=== PATIENT | female | born 1970 | race Caucasian/White ===

== ENCOUNTER 2019-03-04 20:40 | Emergency (ER) | payer OTHER ==
[~2019-03-04] VITALS: Ht 154.9 cm; Wt 49.9 kg
[2019-03-04 20:40] VITALS: BP 126/69
--- NOTE | 2019-03-04 20:40 | NUR ---
Dr. Conti evaluating patient at bedside.
--- NOTE | 2019-03-04 20:40 | NUR ---
PT EMERSON ALS. TAKEN TO BED 8
--- NOTE | 2019-03-04 20:41 | NUR ---
PT TAKEN TO CT Addendum: 03/04/19 at 2112 by [facility] PT TAKEN TO STAT CT. CODE BRAIN. RN ACCOMPANIED.
[2019-03-04] MEDS ORDERED: ONDANSETRON 4 MG/2 ML VIAL IVP ONE ×2 (20:45→21:55)
[2019-03-04] MEDS ORDERED: NACL 0.9% 1,000 ML IV ONE ×2 (20:45→21:55)
--- NOTE | 2019-03-04 20:45 | NUR ---
48 YO F EMERSON FROM [place] D/T ALOC, N/V. PER EMS, PT WAS SHOPPING AT [employer] WHEN SHE SUDDENLY FELT ILL WITH N/V AND A SEED ANALYST CALLED 911. PT ARRIVES TO ED ALOC, DIFFICULT TO AROUSE, AND LEFT SIDED WEAKNESS. EMS REPORTS PT WAS ABLE TO TELL THEM SHE HAS HX OF SEIZURES AND A STROKE WHEN SHE WAS 1.5 YEARS OLD. -- PT GSC 13. PT AWAKE, EYES OPEN. RESPONDS TO NAME. KNOWS . CANNOT PROVIDE HX OR EVENTS LEADING UP TO PRESENT. DIFFICULTY ANSWERING QUESTIONS. DRY HEAVING AT THIS TIME. CANNOT HOLD UP HEAD. WEAKNESS TO LEFT SIDE NOTED. DECORTICATE POSTURING NOTED TO LEFT ARM. -- SKIN PINK, MOIST, COOL. PT DIAPHORETIC. BREATHING EVEN, UNLABORED. PMH-- SEIZURES (LAST UNKNOWN), POSSIBLE CVA RX-- UNKNOWN Addendum: 03/04/19 at 2304 by [facility] SPEECH IS SLURRED, DIFFICULT TO UNDERSTAND.
--- NOTE | 2019-03-04 21:11 | NUR ---
EMT AT BEDSIDE PERFORMING EKG.
[2019-03-04 21:15] LABS: BASOPHILS % (AUTO) 0.4 % (0.0-2.0); EOSINOPHILS # (AUTO) 0.1 K/uL (0-0.4); EOSINOPHILS % (AUTO) 0.9 % (0.0-4.0); HEMATOCRIT 40.1 % (36-48); HEMOGLOBIN 13.6 g/dL (12.0-16.0); LYMPHOCYTES # (AUTO) 1.6 K/uL (2.5-16.5); LYMPHOCYTES % (AUTO) 22.1 % (20.5-51.1); MEAN CORPUSCULAR HEMOGLOBIN 31 pg (27-31); MEAN CORPUSCULAR HGB CONC 34 g/dL (33-37); MEAN CORPUSCULAR VOLUME 90.5 fL (80-94); MONOCYTES # (AUTO) 0.3 K/uL (0.8-1.0); MONOCYTES % (AUTO) 3.7 % (1.7-9.3); NEUTROPHILS # (AUTO) 5.3 K/uL (1.8-7.7); NEUTROPHILS % (AUTO) 72.9 % (42.2-75.2); PLATELET COUNT (AUTO) 268 K/uL (140-450); RED BLOOD CELL COUNT(AUTO) 4.43 MIL/uL (4.20-5.40); RED CELL DISTRIBUTION WIDTH 13.4 % (11.6-13.7); WHITE BLOOD COUNT (AUTO) 7.3 K/uL (4.8-10.8)
--- NOTE | 2019-03-04 21:15 | NUR ---
FRIEND OF PT PROVIDED HX THAT PT HAS CP AND BASELINE WEAKNESS TO LEFT SIDE. SPEECH IS NORMALLY CLEAR.
--- NOTE | 2019-03-04 21:20 | NUR ---
# 14 FR straight catheter with immediate return of 100 ml yellow, clear urine noted. Urine sample collected and sent to lab. Pt tolerated procedure well.
[2019-03-04 21:31] LABS: APPEARANCE,URINE HAZY (CLEAR); BILIRUBIN,URINE 1+ (NEGATIVE); BLOOD, URINE NEGATIVE (NEGATIVE); COLOR,URINE YELLOW (YELLOW); LEUKOCYTE ESTERASE ,URINE NEGATIVE (NEGATIVE); NITRITE, URINE NEGATIVE (NEGATIVE); PH,URINE 6.5 (5.0-9.0); UGLUCOSE NEGATIVE (NEGATIVE)
[2019-03-04 21:35] LABS: ALBUMIN 3.8 g/dL (3.4-5.0); CARBON DIOXIDE 21.8 mmol/L (21-32); CREATININE 0.9 mg/dL (0.6-1.3); PROTHROMBIN TIME 10.3 secs (10.8-13.4); TOTAL BILIRUBIN 0.5 mg/dL (0.0-1.0)
[2019-03-04 21:37] LABS: BARBITURATE, URINE NEG. ng/ml (NEG <=200); BENZODIAZEPINE, URINE NEG. ng/mL (NEG <=200); CANNABINOID, URINE NEG. ng/mL (NEG <=50); COCAINE, URINE NEG. ng/mL (NEG <=300); OPIATE, URINE NEG. ng/mL (NEG <=2000); PHENCYCLIDINE SCREEN,URINE NEG. ng/mL (NEG <=25)
[2019-03-04 21:39] LABS: POTASSIUM 2.8 mmol/L (3.5-5.1)
[2019-03-04] MEDS ORDERED: KCL 20 MEQ/WATER INJ PREMIX 200 ML IV ONE (21:40)
--- NOTE | 2019-03-04 21:45 | NUR ---
PT'S AT BEDSIDE. REPORTS PT HAS NOT HAD A SEIZURE IN OVER 15 YEARS.
[2019-03-04] MEDS ORDERED: SERT100T PO (21:51)
[2019-03-04] MEDS ORDERED: LAM25 PO (21:51)
[2019-03-04] MEDS ORDERED: ZONI100C34 PO (21:51)
--- NOTE | 2019-03-04 22:42 | NUR ---
Roger martin in [facility] - 03/04/19 at 2254 by DANISH PT TAKEN TO CT
--- NOTE | 2019-03-04 22:43 | NUR ---
PT TAKEN TO CT VIA [facility].
[2019-03-04 22:47] LABS: ACETAMINOPHEN 4.4 ug/ml (10-30); SALICYLATE 6.8 mg/dL (2.8-20.0)
--- NOTE | 2019-03-04 22:54 | NUR ---
PT RETURN FROM CT
--- NOTE | 2019-03-04 23:00 | NUR ---
PT IS REQUESTING TO USE RR AT THIS TIME. BEDPAN PROVIDED. SLIGHT INCREASE IN COGNITION, MOTOR FUNCTION AND MOBILITY NOTED.
--- NOTE | 2019-03-04 23:23 | NUR ---
PT IS CONTINUING TO VOMIT AT THIS TIME. DR. KING NOTIFIED.
[2019-03-04] MEDS ORDERED: METOCLOPRAMIDE 10 MG/2 ML INJ VIAL IVP ONE (23:25)
[2019-03-04] MEDS ORDERED: levETIRAcetam 1,000 MG in NACL 0.9% 100 ML IV ONE (23:35)
[2019-03-04] MEDS ORDERED: LORazepam 2 MG/ML VIAL IVP ONE (23:35)
--- NOTE | 2019-03-04 23:46 | NUR ---
PT RETURN FROM CT
[2019-03-04] MEDS ORDERED: levETIRAcetam 100 MG/ML VIAL IV ONE (23:52)
[2019-03-05] MEDS ORDERED: NACL 0.9% 1,000 ML IV ONE
[2019-03-05] MEDS ORDERED: PIPERACILLIN/TAZOBACTAM 3.375 GM in DEXTROSE 5% 50 ML IV ONE ×2
[2019-03-05] MEDS ORDERED: VANCOMYCIN 1,000 MG in DEXTROSE 5% 250 ML IV ONE ×2
--- NOTE | 2019-03-05 00:10 | NUR ---
PT FOUND WITH IV REMOVED. KCL STOPPED. BLEEDING CONTROLLED.
--- NOTE | 2019-03-05 00:45 | NUR ---
24 G PIV ESTABLISHED TO R AC. KCL RESTARTED.
--- NOTE | 2019-03-05 01:00 | NUR ---
SEVERAL UNSUCCESSFUL PIV STARTS WERE ATTEMPTED FOR A SECOND ACCESS LINE. UNABLE TO INITIATE SECOND IV ACCESS. KCL DRIP CURRENTLY RUNNING ON PRIMARY IV LINE. ATIVAN 2 MG IVP GIVEN. KEPPRA AND ABX HAVE NOT BEEN GIVEN. DR. KING NOTIFIED. PT WILL BE TRANSFERED TO [facility].
--- NOTE | 2019-03-05 01:52 | NUR ---
Patient to be transferred to [facility]. Is being transferred due to [employer] insurance. Receiving facility has accepting physician and available space. ER physician has signed transfer form. Patient or responsible democrat has agreed to transfer and signed form. Patient belongings inventoried and will be sent with patient. Copy of nursing notes, lab reports, EKG, Physicians Orders and X-rays to be sent with patient. Report called to BOB Abraham at receiving facility. [facility] ambulance service has been called for transfer. ETA is 0200.
--- NOTE | 2019-03-05 02:00 | NUR ---
PT OFFERED BEDPAN AND [facility] PROVIDED.
[2019-03-05 02:58] VITALS: BP 90/49
--- NOTE | 2019-03-05 02:58 | NUR ---
Pt report given to LAYNE Coley. Transfer of care at this time. VSS. Pt is drowsy, responds to name, asking questions. Transfered to ambulance [facility]. Pt left facility at [address] [facility] ALS transport.
--- NOTE | 2019-03-05 02:59 | NUR ---
PT TAKEN BY [facility] TRANSPORT TO [facility] 506
== END 2019-03-05 02:59 | disposition short-term general hospital (02) ==
LOC: MED 20:40
DX: R41.82 Altered mental status, unspecified (principal); J18.9 Pneumonia, unspecified organism; E87.6 Hypokalemia; R11.2 Nausea with vomiting, unspecified; G80.9 Cerebral palsy, unspecified; Z79.899 Other long term (current) drug therapy
CPT/HCPCS: 36415; 70450; 71045; 71250; 74176; 80053; 80305; 81003; 81025; 83605; 84484; 85025; 85610; 85730; 86886; 86900; 86901; 87040; 87086; 93005; 96365; 96366; 96375; 96376; 99284; G0480; G0482; J1953; J2060; J2405; J2765; J3480; J7030; Q0092